=== PATIENT | female | born 1955 | race Caucasian/White ===

== ENCOUNTER 2020-10-25 12:00 | Inpatient (IN) | payer OTHER ==
[2020-10-25 12:58] LABS: Absolute Lymphocytes (CBC) 3.5 K/uL (0.7-4.9); Basophils % 0.6 % (0-1.3); Hematocrit 35.7 % (36.0-45.0); Lymphocytes % 45.8 % (15.3-44.8); MPV 6.3 fL (7.6-11.3); RBC Red Blood Cell Count 4.02 M/uL (3.86-4.86)
[2020-10-25 12:59] LABS: Protime INR 0.97
--- NOTE | 2020-10-25 13:10 | RAD REPORT ---
EXAM DESCRIPTION: CT - Chest Abdomen Pelvis W Cont - 10/25/2020 12:54 pm CLINICAL HISTORY: Chest and abdomen pain. CHEST PAIN COMPARISON: No comparisons TECHNIQUE: Approximately 100 mL nonionic IV contrast was administered to the patient. All CT scans are performed using dose optimization technique as appropriate and may include automated exposure control or mA/KV adjustment according to patient size. FINDINGS: The lungs are clear.No pleural or pericardial effusion.No intrathoracic adenopathy. The liver, spleen, pancreas, adrenal glands and kidneys are within normal limits. No bowel obstruction, free air, free fluid or abscess. Normal appendix. No pathologic lymphadenopath y in the abdomen or pelvis. Right-sided pelvic deformity at the pubic symphysis may be related to remote trauma. Acute left third , fourth, fifth, sixth rib fractures. These are nondisplaced. No underlying pneumothorax. Age indeter minate T12 compression fracture. Remote appearing compression fractures in the lower cervical spine a t C7, T1, T2, T3 T6, and T7. Kyphoplasty changes at T7. Endplate deformity at L3 along the inferior m argin is likely chronic as well. IMPRESSION: Essentially nondisplaced left third through sixth rib fractures anteriorly. No underlyin g pneumothorax. Multiple remote appearing thoracic and lumbar compression fractures. If there is conc tj for acute compression fracture, MRI could better establish acuity if clinically indicated peer
[2020-10-25 13:14] LABS: Urine Blood Negative (Negative); Urine Glucose Negative (Negative); Urine Protein Negative (Negative); Urine Specific Gravity <=1.005 (1.005-1.030)
[2020-10-25 13:15] LABS: ALT/SGPT 15 U/L (12-78); AST/SGOT 17 U/L (15-37); Albumin 3.3 g/dL (3.4-5.0); Alkaline Phosphatase 99 U/L (45-117); BUN Blood Urea Nitrogen 9 mg/dL (7-18); Bicarbonate 34 mmol/L (21-32); Bilirubin Direct 0.2 mg/dL (0-0.2); Bilirubin Total 0.5 mg/dL (0.2-1.0); Glucose Level 105 mg/dL (74-106); Lipase 683 U/L (73-393); NT PRO-BNP 70 pg/mL (<125); Protein, Total 6.4 g/dL (6.4-8.2); Sodium Level 140 mmol/L (136-145); Troponin (Emerg Dept Use Only) < 0.02 ng/mL (0.0-0.045)
[2020-10-25 13:23] LABS: Potassium 2.1 mmol/L (3.5-5.1)
--- NOTE | 2020-10-25 13:30 | RAD REPORT ---
EXAM DESCRIPTION: RAD - Chest Single View - 10/25/2020 1:17 pm CLINICAL HISTORY: COUGH COMPARISON: Chest Abdomen Pelvis W Cont dated 10/25/2020 FINDINGS: Left perihilar opacities are present which corresponds to atelectasis or scarring in the l eft lung. The heart size is within normal limits.No acute osseous abnormality. No significant pleural effusions or pneumothorax. IMPRESSION: Left perihilar opacities corresponds to atelectasis and/or scarring left lung. Nondispla tommy rib fractures are better demonstrated on the same day chest CT. No pneumothorax per
--- NOTE | 2020-10-25 13:34 | ER ---
Nurse's Notes [facility] Name: Octavia Borja Age: 65 yrs Sex: Female : 1955 Arrival Date: 10/25/2020 Time: 12:01 Bed External Waiting Private MD: Diagnosis: Chest pain on breathing;Multiple fractures of ribs, left side;COPD/ Chronic obstructive pulmonary disease, unspecified;Hypokalemia Presentation: 10/25 12:20 Chief complaint: Patient states: Shortness of breath and left rib pain x 2 days. kg Coronavirus screen: Client denies travel out of the [place] in the last 14 days. At this time, unable to obtain information related to travel outside the [place] At this time, the client does not indicate any symptoms associated with coronavirus-19. Ebola Screen: Patient negative for fever greater than or equal to 101.5 degrees Fahrenheit, and additional compatible Ebola Virus Disease symptoms Patient denies exposure to infectious person. Patient denies travel to an Ebola-affected area in the 21 days before illness onset. Initial Sepsis Screen: Does the patient meet any 2 criteria? No. Patient's initial sepsis screen is negative. Does the patient have a suspected source of infection? No. Patient's initial sepsis screen is negative. Risk Assessment: Do you want to hurt yourself or someone else? Patient reports no desire to harm self or others. Onset of symptoms was September 22, 2020. 12:20 Method Of Arrival: Wheelchair kg 12:20 Acuity: PAPI 3 kg Triage Assessment: 12:50 Respiratory: Respiratory: Reports cough that is productive, pain with cough pain with kg movement Unable to take a deep breath due to pain Airway is patent Trachea midline Respiratory effort is even, unlabored, relaxed, Respiratory pattern is regular, Breath sounds are diminished Breath sounds with wheezes bilaterally. Onset: The symptoms/episode began/occurred two days ago, the patient has mild shortness of breath. Historical: - Allergies: 12:37 No Known Allergies; kg - Home Meds: 12:37 [place] 7.5-325 mg Oral tab 1 tab every 4-6 hours [Active]; amlodipine 10 mg tab 1 tab kg once daily [Active]; donepezil 10 mg oral tab 1 tab once daily [Active]; zolpidem 10 mg Oral tab 1 tab once daily [Active]; duloxetine 30 mg oral cpDR 1 cap 2 times per day [Active]; memantine 10 mg oral tab 1 tab 2 times per day [Active]; - PMHx: 12:37 Depressive disorder; Dementia; Hypertensive disorder; broken ribs; kg - PSHx: 12:37 Cholecystectomy; kg - Immunization history:: Client reports receiving the 2nd dose of the Covid vaccine, Client reports receiving the 2nd dose of the Covid vaccine. - Social history:: Smoking status: Patient reports the use of cigarette tobacco products, smokes one-half pack cigarettes per day. - Family history:: not pertinent. Screenin:40 Abuse screen: Denies threats or abuse. Denies injuries from another. Nutritional kg screening: No deficits noted. Tuberculosis screening: No symptoms or risk factors identified. Fall Risk Fall in past 12 months (25 points). No secondary diagnosis (0 pts). IV access (20 points). Ambulatory Aid- None/Bed Rest/Nurse Assist (0 pts). Gait- Weak (10 pts.). Mental Status- Overestimates/Forgets Limitations (15 pts.). Total Durham Fall Scale indicates High Risk Score (45 or more points). Fall prevention measures have been instituted. Side Rails Up X 2 Placed Close to Nursing Station Frequent Obs/Assessments Occuring Family Present and informed to notify staff if the need to leave the bedside As available patient and family educated on Fall Prevention Program and Strategies. Assessment: 12:41 General: Appears in no apparent distress. Behavior is calm, cooperative, appropriate kg for age, quiet. Pain: Complains of pain in Left flank, right upper arm. Cardiovascular: Reports chest pain, shortness of breath, Heart tones S1 S2 Rhythm is regular. Respiratory: Airway is patent Trachea midline Respiratory effort is even, unlabored, relaxed, Respiratory pattern is regular, Breath sounds are clear Breath sounds are diminished bilaterally. 12:50 Neuro: Level of Consciousness is awake, alert, obeys commands, confused, Confused at kg times but easily reoriented. . Oriented to person, place, time, situation, Poultry [employer] Worker are equal bilaterally Moves all extremities. Full function. GI: No deficits noted. : frequent urination. EENT: No deficits noted. Derm: No deficits noted. Musculoskeletal: Reports weakness in Generalized. 17:58 Reassessment: Pt pulled out both of her IV's and removed all of her equipment and kg walked to the nurses station stating she wants to call her and go home. Pt has been reeducated multiple times that her potassium is low. Pt is still stating she wants to go home. . 18:04 Reassessment: Spoke with patient's who states that he is unable to drive and ss does not have any family or friends in the area and would not be able to come be with patient. Pt is very persistent that she wants to come home. Pt remains in wheelchair at nurses station at this time. Attempting to redirect patient back into room multiple times without success. states that since patient has been unable to sleep she has been unreasonable lately. 19:40 Reassessment: Spoke to patients again. He stated that the neighbor is going to kg take him up there to pick her up and bring her home. Patient is currently sitting outside with [employer] and [employer].. 20:00 Reassessment: pt left AMA. bb Vital Signs: 12:10 BP 154 / 81; Pulse 72; Resp 20; Temp 97.7(O); Pulse Ox 94% on R/A; Weight 49.9 kg (R); kg Height 5 ft. 2 in. (157.48 cm) (R); Pain 4/10; 13:00 BP 150 / 70; Pulse 80; Resp 18; Pulse Ox 97% on R/A; kg 14:00 BP 154 / 78; Pulse 75; Resp 20; Pulse Ox 92% on R/A; kg 14:45 BP 142 / 78; Pulse 75; Resp 20; Pulse Ox 92% ; kg 15:00 BP 148 / 79; Pulse 92; Resp 20; Pulse Ox 91% ; kg 15:30 BP 138 / 67; Pulse 79; Resp 20; Pulse Ox 93% on R/A; kg 16:30 BP 146 / 82; Pulse 96; Resp 20; Pulse Ox 93% ; kg 12:10 Body Mass Index 20.12 (49.90 kg, 157.48 cm) kg ED Course: 12:01 Patient arrived in ED. ds1 12:04 Endy Alan MD is Attending Physician. sid 12:08 Violeta Coronel, SHANE is Primary Nurse. kg 12:36 Triage completed. kg 12:41 Inserted saline lock: 20 gauge in right antecubital area, using aseptic technique. kg 12:54 CT Chest, Abdomen, Pelvis - W/Contrast In Process Unspecified. EDMS 13:17 XRAY Chest (1 view) In Process Unspecified. EDMS 13:31 Marlo Toledo MD is Hospitalizing Provider. sid 14:22 No provider procedures requiring assistance completed. Inserted saline lock: 20 gauge kg in right forearm, using aseptic technique. 14:22 Arm band placed on right wrist. kg 08/05 00:48 IV discontinued, intact, bleeding controlled, No redness/swelling at site. Pressure kg dressing applied, Pt removed her own IV. Administered Medications: 00:47 Discontinued: NS 0.9% with KCl 20 mEq/L 1000 ml IV at 125 ml/hr continuous kg 08/04 13:26 Not Given (Duplicate Order): NS 0.9% 1000 ml IV at 125 ml/hr continuous sid 14:03 Drug: Potassium Chloride 20 mEq Route: IV; Rate: per protocol; Site: right antecubital; kg 19:00 Follow up: IV Status: Completed infusion; IV Intake: 100ml kg 14:03 Drug: Potassium Effervescent Tablet 50 mEq Route: PO; kg 15:30 Follow up: Response: No adverse reaction kg 14:04 Drug: morphine 2 mg Route: IVP; Site: right antecubital; kg 16:00 Follow up: Response: No adverse reaction kg 14:04 Drug: Zofran (Ondansetron) 4 mg Route: IVP; Site: right antecubital; kg 16:00 Follow up: Response: No adverse reaction kg 15:45 Drug: NS 0.9% with KCl 20 mEq/L 1000 ml Route: IV; Rate: 125 ml/hr; Site: left kg antecubital; 19:30 Follow up: Response: No adverse reaction; IV Intake: 400ml kg 16:00 Drug: Potassium Chloride 20 mEq Route: IV; Rate: per protocol; Site: right antecubital; kg 18:00 Follow up: IV Status: Completed infusion; IV Intake: 100ml kg Intake: 18:00 IV: 100ml; Total: 100ml. kg 19:00 IV: 100ml; Total: 200ml. kg 19:30 IV: 400ml; Total: 600ml. kg Outcome: 13:33 Decision to Hospitalize by Provider. sid 20:10 AMA AMA form signed kg 20:10 Condition: stable kg 10/26 02:30 Patient left the ED. bb Signatures: Dispatcher [employer] EDEndy Weaver MD MD cha Sanford, Demi ds1 Charu Whiteside RN RN bb Nikki Shrestha RN RN ss Violeta Coronel RN RN kg
--- NOTE | 2020-10-25 13:34 | EDPHYS ---
Physician Documentation [facility] Name: Octavia Borja Age: 65 yrs Sex: Female : 1955 Arrival Date: 10/25/2020 Time: 12:01 Bed External Waiting Private MD: AGUSTÍN Physician Endy Alan HPI: 10/25 12:40 This 65 yrs old Female presents to ER via Wheelchair with complaints of Rib sid Pain, Breathing Difficulty. 12:40 The patient has shortness of breath with light activity. Onset: The symptoms/episode sid began/occurred 3 day(s) ago. Duration: The symptoms are continuous, and are unchanged since they started. The patient's shortness of breath is aggravated by talking, walking. Associated signs and symptoms: Pertinent positives: non-productive cough. Severity of symptoms: At their worst the symptoms were mild moderate in the emergency department the symptoms are unchanged. The patient has experienced similar episodes in the past, several times. Historical: - Allergies: 12:37 No Known Allergies; kg - Home Meds: 12:37 [place] 7.5-325 mg Oral tab 1 tab every 4-6 hours [Active]; amlodipine 10 mg tab 1 tab kg once daily [Active]; donepezil 10 mg oral tab 1 tab once daily [Active]; zolpidem 10 mg Oral tab 1 tab once daily [Active]; duloxetine 30 mg oral cpDR 1 cap 2 times per day [Active]; memantine 10 mg oral tab 1 tab 2 times per day [Active]; - PMHx: 12:37 Depressive disorder; Dementia; Hypertensive disorder; broken ribs; kg - PSHx: 12:37 Cholecystectomy; kg - Immunization history:: Client reports receiving the 2nd dose of the Covid vaccine, Client reports receiving the 2nd dose of the Covid vaccine. - Social history:: Smoking status: Patient reports the use of cigarette tobacco products, smokes one-half pack cigarettes per day. - Family history:: not pertinent. ROS: 12:40 Constitutional: Negative for fever, chills, and weight loss, Eyes: Negative for injury, sid pain, redness, and discharge, ENT: Negative for injury, pain, and discharge, Neck: Negative for injury, pain, and swelling, Cardiovascular: Negative for chest pain, palpitations, and edema, Abdomen/GI: Negative for abdominal pain, nausea, vomiting, diarrhea, and constipation, Back: Negative for injury and pain, : Negative for injury, bleeding, discharge, and swelling, MS/Extremity: Negative for injury and deformity, Skin: Negative for injury, rash, and discoloration, Neuro: Negative for headache, weakness, numbness, tingling, and seizure, Psych: Negative for depression, anxiety, suicide ideation, homicidal ideation, and hallucinations, Allergy/Immunology: Negative for hives, rash, and allergies, Endocrine: Negative for neck swelling, polydipsia, polyuria, polyphagia, and marked weight changes, Hematologic/Lymphatic: Negative for swollen nodes, abnormal bleeding, and unusual bruising. 12:40 Respiratory: Positive for cough, shortness of breath, at rest. Exam: 12:40 Constitutional: This is a well developed, well nourished patient who is awake, alert, sid and in no acute distress. Head/Face: Normocephalic, atraumatic. Eyes: Pupils equal round and reactive to light, extra-ocular motions intact. Lids and lashes normal. Conjunctiva and sclera are non-icteric and not injected. Cornea within normal limits. Periorbital areas with no swelling, redness, or edema. ENT: Nares patent. No nasal discharge, no septal abnormalities noted. Tympanic membranes are normal and external auditory canals are clear. Oropharynx with no redness, swelling, or masses, exudates, or evidence of obstruction, uvula midline. Mucous membranes moist. Neck: Trachea midline, no thyromegaly or masses palpated, and no cervical lymphadenopathy. Supple, full range of motion without nuchal rigidity, or vertebral point tenderness. No Meningismus. Cardiovascular: Regular rate and rhythm with a normal S1 and S2. No gallops, murmurs, or rubs. Normal PMI, no JVD. No pulse deficits. Respiratory: Lungs have equal breath sounds bilaterally, clear to auscultation and percussion. No rales, rhonchi or wheezes noted. No increased work of breathing, no retractions or nasal flaring. Abdomen/GI: Soft, non-tender, with normal bowel sounds. No distension or tympany. No guarding or rebound. No evidence of tenderness throughout. Back: No spinal tenderness. No costovertebral tenderness. Full range of motion. Female : Normal external genitalia. Skin: Warm, dry with normal turgor. Normal color with no rashes, no lesions, and no evidence of cellulitis. MS/ Extremity: Pulses equal, no cyanosis. Neurovascular intact. Full, normal range of motion. Neuro: Awake and alert, GCS 15, oriented to person, place, time, and situation. Cranial nerves II-XII grossly intact. Motor strength 5/5 in all extremities. Sensory grossly intact. Cerebellar exam normal. Normal gait. Psych: Awake, alert, with orientation to person, place and time. Behavior, mood, and affect are within normal limits. 12:40 Chest/axilla: Inspection: normal, Palpation: tenderness, that is moderate, of the left lateral posterior chest and left lateral anterior chest, Axilla: are normal, Breasts: are normal, Lymph nodes: lymphadenopathy is not appreciated. 12:40 ECG was reviewed by the Attending Physician. Vital Signs: 12:10 BP 154 / 81; Pulse 72; Resp 20; Temp 97.7(O); Pulse Ox 94% on R/A; Weight 49.9 kg (R); kg Height 5 ft. 2 in. (157.48 cm) (R); Pain 4/10; 13:00 BP 150 / 70; Pulse 80; Resp 18; Pulse Ox 97% on R/A; kg 14:00 BP 154 / 78; Pulse 75; Resp 20; Pulse Ox 92% on R/A; kg 14:45 BP 142 / 78; Pulse 75; Resp 20; Pulse Ox 92% ; kg 15:00 BP 148 / 79; Pulse 92; Resp 20; Pulse Ox 91% ; kg 15:30 BP 138 / 67; Pulse 79; Resp 20; Pulse Ox 93% on R/A; kg 16:30 BP 146 / 82; Pulse 96; Resp 20; Pulse Ox 93% ; kg 12:10 Body Mass Index 20.12 (49.90 kg, 157.48 cm) kg MDM: 12:04 Patient medically screened. sid 12:43 Differential diagnosis: Anemia Anxiety Reaction Bronchitis Chronic Obstructive sid Pulmonary Disease Myocardial Infarction pulmonary edema, reactive airway disease, Sepsis. Antibiotic administration: Not indicated. The patient's Wells Deep Vein Thrombosis Score was calculated as follows: Total Score: 0-2 Pts- Low Risk. The patient's pulmonary embolism risk score was calculated as follows: Total Score: 0-2 points. This patient was found to be at low risk for a pulmonary embolism by using the Well's assessment criteria. Immunization status: Pneumococcal vaccine: Influenza vaccine: Data reviewed: vital signs, nurses notes, lab test result(s), EKG, radiologic studies, CT scan, plain films. Data interpreted: monitor worker: rate is 72 beats/min, rhythm is regular, Pulse oximetry: on room air Interpretation: normal. Test interpretation: by ED physician or midlevel provider: ECG, plain radiologic studies. Counseling: I had a detailed discussion with the patient and/or guardian regarding: the historical points, exam findings, and any diagnostic results supporting the discharge/admit diagnosis, lab results, radiology results. 10/25 12:40 Order name: Basic Metabolic Panel; Complete Time: 13:25 [facility] 10/25 12:40 Order name: CBC with Diff; Complete Time: 13:25 [facility] 10/25 12:40 Order name: LFT's; Complete Time: 13:25 [facility] 10/25 12:40 Order name: Magnesium; Complete Time: 13:25 [facility] 10/25 12:40 Order name: NT PRO-BNP; Complete Time: 13:25 [facility] 10/25 12:40 Order name: PT-INR; Complete Time: 13:25 [facility] 10/25 12:40 Order name: Troponin (emerg Dept Use Only); Complete Time: 13:25 [facility] 10/25 12:40 Order name: Lipase; Complete Time: 13:25 [facility] 10/25 12:40 Order name: Urine Culture [facility] 10/25 13:14 Order name: Urine Dipstick-Ancillary; Complete Time: 13:25 [facility] 10/25 13:25 Order name: Phosphorus; Complete Time: 15:44 [facility] 10/25 15:50 Order name: Lipase [facility] 10/25 15:52 Order name: Lipid Profile [facility] 10/25 15:52 Order name: Hemoglobin A1c [facility] 10/25 12:40 Order name: XRAY Chest (1 view); Complete Time: 15:09 [facility] 10/25 12:40 Order name: CT Chest, Abdomen, Pelvis - W/Contrast; Complete Time: 13:25 [facility] 10/25 16:01 Order name: Basic Metabolic Panel [facility] 10/25 16:01 Order name: Basic Metabolic Panel [facility] 10/25 16:01 Order name: Troponin I [facility] 10/25 16:01 Order name: Troponin I [facility] 10/25 16:01 Order name: CBC with Automated Diff [facility] 10/25 16:01 Order name: CBC with Automated Diff [facility] 10/25 16:01 Order name: Troponin I [facility] 10/25 16:01 Order name: Troponin I [facility] 10/25 16:01 Order name: SARS-COV-2 RT PCR [facility] 10/25 16:02 Order name: Urinalysis [facility] 10/25 12:40 Order name: EKG; Complete Time: 12:41 [facility] 10/25 12:40 Order name: Cardiac monitoring; Complete Time: 13:16 [facility] 10/25 12:40 Order name: EKG - Nurse/Tech; Complete Time: 13:16 [facility] 10/25 12:40 Order name: IV Saline Lock; Complete Time: 13:17 [facility] 10/25 12:40 Order name: Labs collected and sent; Complete Time: 13:17 [facility] 10/25 12:40 Order name: O2 Per Protocol; Complete Time: 13:17 [facility] 10/25 12:40 Order name: O2 Sat Monitoring; Complete Time: 13:17 [facility] 10/25 12:40 Order name: Urine Dipstick-Ancillary (obtain specimen); Complete Time: 13:16 [facility] 10/25 13:25 Order name: IV Saline Lock - Large Bore; Complete Time: 15:06 [facility] 10/25 16:01 Order name: NPO [facility] 10/25 17:42 Order name: Diet Regular; Complete Time: 17:43 kg EC:40 Rate is 72 beats/min. Rhythm is regular. QRS [place] is Normal. [place] interval is normal. QRS sid interval is normal. QT interval is normal. No Q waves. T waves are Normal. No ST changes noted. Clinical impression: NSR w/ Non-specific ST/T Changes and No evidence of ischemia. Interpreted by me. Reviewed by me. Administered Medications: 10/26 00:47 Discontinued: NS 0.9% with KCl 20 mEq/L 1000 ml IV at 125 ml/hr continuous kg 10/25 13:26 Not Given (Duplicate Order): NS 0.9% 1000 ml IV at 125 ml/hr continuous [facility] 14:03 Drug: Potassium Chloride 20 mEq Route: IV; Rate: per protocol; Site: right antecubital; kg 19:00 Follow up: IV Status: Completed infusion; IV Intake: 100ml kg 14:03 Drug: Potassium Effervescent Tablet 50 mEq Route: PO; kg 15:30 Follow up: Response: No adverse reaction kg 14:04 Drug: morphine 2 mg Route: IVP; Site: right antecubital; kg 16:00 Follow up: Response: No adverse reaction kg 14:04 Drug: Zofran (Ondansetron) 4 mg Route: IVP; Site: right antecubital; kg 16:00 Follow up: Response: No adverse reaction kg 15:45 Drug: NS 0.9% with KCl 20 mEq/L 1000 ml Route: IV; Rate: 125 ml/hr; Site: left kg antecubital; 19:30 Follow up: Response: No adverse reaction; IV Intake: 400ml kg 16:00 Drug: Potassium Chloride 20 mEq Route: IV; Rate: per protocol; Site: right antecubital; kg 18:00 Follow up: IV Status: Completed infusion; IV Intake: 100ml kg Disposition Summary: 10/25/20 13:33 Hospitalization Ordered Hospitalization Status: Inpatient Admission sid Provider: Marlo Toledo cha Location: Telemetry/MedSurg (Inpatient) sid Condition: Fair sid Problem: new sid Symptoms: have improved sid Bed/Room Type: Standard sid Room Assignment: 220(10/25/20 18:36) bd Diagnosis - Chest pain on breathing sid - Multiple fractures of ribs, left side sid - COPD/ Chronic obstructive pulmonary disease, unspecified sid - Hypokalemia sid Forms: - Medication Reconciliation Form sid - SBAR form sid Signatures: Dispatcher [employer] EDMandi Jara Corey, MD MD cha Graham, Kristen, SHANE RN kg Corrections: (The following items were deleted from the chart) 18:36 13:33 sid bd
[2020-10-25] MEDS ORDERED: ONDANSETRON 4 MG/2 ML VIAL ONE (14:11)
[2020-10-25] MEDS ORDERED: KCL 20 MEQ/100 mL IVPB 40 MEQ/200 ML BAG IV ONE (14:11)
[2020-10-25] MEDS ORDERED: MORPHINE 2 MG/ML SYR ONE (14:11)
[2020-10-25] MEDS ORDERED: NA CHLORIDE 0.9% 1,000 ML ONE (14:11)
[2020-10-25] MEDS ORDERED: POTASSIUM 25 MEQ EFFERV TAB ONE (14:11)
[2020-10-25] MEDS ORDERED: NA CHLORIDE 0.9% 1,000 ML with POTASSIUM CL 20 MEQ IV SCH ×2 (15:00)
[2020-10-25] MEDS ORDERED: MORPHINE 4 MG/ML SYR IV PRN (15:52)
[2020-10-25] MEDS ORDERED: ONDANSETRON 4 MG/2 ML VIAL IV PRN (15:54)
[2020-10-25] MEDS ORDERED: ACETAMINOPHEN 500 MG TAB PO PRN (15:54)
[2020-10-25] MEDS ORDERED: NS KCL 20MEQ 1,000 ML IV ONE (16:02)
--- NOTE | 2020-10-25 16:37 | P.HP ---
Certification for Inpatient Patient admitted to: Inpatient With expected LOS: >2 Midnights Patient will require the following post-hospital care: None Practitioner: I am a practitioner with admitting privileges, knowledge of patient current condition, hospital course, and medical plan of care. Services: Services provided to patient in accordance with Admission requirements found in Title 42 Section 412.3 of the Code of Federal Regulations <JacobwilbertKathleen viera - Last Filed: 10/25/20 23:42> Patient History Date of Service: 10/25/20 History of Present Illness: Patient is a 65 years old female with a past medical history significant for depression, dementia, hypertension, broken ribs who presents with complaint of shortness of breath that has been ongoing for the past 3 days. Patient reported that she has had multiple falls in the past and has had a couple of broken ribs. She reported that she fell yesterday and landed on her left side. Patient also reports chest pain located in the left chest wall area. Patient rated pain as 4/10 and described pain as aching in quality. Patient denies any other signs or symptoms. Symptoms are aggravated by exertion and relieved by nothing. Patient decided to present to the hospital due to worsening symptoms. Home medications list reviewed: Yes - Past Medical/Surgical History Has patient received pneumonia vaccine in the past: No -: Dementia -: HTN -: Depression Past Surgical History: Reviewed- Non-Contributory - Family History Family History: Reviewed- Non-Contributory (Reviewed and patient unware of any family history) - Social History Smoking therapy provided: No Alcohol use: No CD- Drugs: No Caffeine use: No Place of Residence: Home <JacobalexandriaJadabeverley Viera - Last Filed: 10/25/20 23:42> Date of Service: 10/26/20 <Marlo Toledo - Last Filed: 10/26/20 21:00> Allergies No Known Allergies Allergy (Unverified 10/25/20 16:25) Review of Systems General: Unremarkable Eyes: Unremarkable ENT: Unremarkable Respiratory: Shortness of Breath, SOB with Excertion Cardiovascular: Chest Pain Gastrointestinal: Unremarkable Genitourinary: Unremarkable Musculoskeletal: Other (Ribs pain) Integumentary: Unremarkable Neurological: Unremarkable Lymphatics: Unremarkable <VeeJadabeverley Viera - Last Filed: 10/25/20 23:42> Physical Examination - Physical Exam General: Alert, In no apparent distress, Oriented x3 HEENT: Atraumatic, PERRLA, Mucous membr. moist/pink, EOMI, Sclerae nonicteric Neck: Supple, 2+ carotid pulse no bruit, No LAD, Without JVD or thyroid abnormality Respiratory: Clear to auscultation bilaterally, Diminished Cardiovascular: Regular rate/rhythm, Normal S1 S2 Capillary refill: <2 Seconds Gastrointestinal: Normal bowel sounds, No tenderness Musculoskeletal: No tenderness Integumentary: No rashes Neurological: Normal gait, Normal speech, Normal tone, Normal affect Lymphatics: No axilla or inguinal lymphadenopathy External genitalia: Deferred Rectal: Deferred - Studies Laboratory Data (last 24 hrs) 10/25/20 12:45: Phosphorus 3.9 10/25/20 12:45: PT 11.2, INR 0.97 10/25/20 12:45: WBC 7.60, Hgb 12.8, Hct 35.7 L, Plt Count 288 10/25/20 12:45: Sodium 140, Potassium 2.1 L*, BUN 9, Creatinine 0.67, Glucose 105, Magnesium 2.0, Total Bilirubin 0.5, AST 17, ALT 15, Alkaline Phosphatase 99, Lipase 683 H <Kathleen Baxter - Last Filed: 10/25/20 23:42> Assessment and Plan - Plan --Chest pain. Likely atypical. Secondary to broken ribs. Will trend serial troponins. Telemetry to monitor for any significant arrhythmia. Continue supportive care. --Acute pain. We will manage pain with current pain medication regimen. --Hypokalemia. Replete as needed. --Dementia. Continue supportive care. --Depression. Continue home medications. --Hypertension. Stable. Continue home medication. --Compression fractures. Noted in the thoracic and lumbar spine on CT imaging. Patient denies any s/s of radiculopathy. MRI lumbar and thoracic spine pending for further assessment. --Elevated lipase. Patient denies any abdominal pain. Will reassess levels in a.m. --Shortness of breath. Imaging does not demonstrate any pneumothorax, pleural, pericardial or intrathoracic adenopathy. SOB likely due to broken ribs. Continue neb treatment with Atrovent\albuterol. --DVT prophylaxis with Lovenox subQ. Pain Assessment and Follow-Up - 18+ years old: Code: G8730 - pain assessment positive with standardized tool AND a follow up plan is documented. I have had discussion about advanced directives with the patient during this hospital admission. Addressed code status and /or goals of care. Spent more than 15 minutes. Case discussed withpatient and nurse. Discharge Plan: Home Plan to discharge in: 48 Hours - Advance Directives Does patient have a Living Will: No Does patient have a Durable POA for Healthcare: No - Code Status/Comfort Care Code Status Assessed: Yes Code Status: Full Code Physician Review: Patient Assessed, Agree with Above Assessment and Plan Critical Care: No <Kathleen Baxter - Last Filed: 10/25/20 23:42> - Plan Case reviewed with Kathleen Baxter Patient left against medical advice on 10/25 prior to me examining her. Time Spent Managing Pts Care (In Minutes): 65 <Marlo Toledo - Last Filed: 10/26/20 21:00>
[2020-10-25 18:19] VITALS: O2SAT 95
[2020-10-25] MEDS ORDERED: ALBUTEROL 2.5 MG/3 ML NEB SOL NEB SCH (20:00)
[2020-10-25] MEDS ORDERED: IPRATROPIUM BROM 0.5MG/2.5ML NEB SCH (20:00)
[2020-10-26 03:21] VITALS: TEMP 97.7
[2020-10-26 03:32] VITALS: BP 146/82
[2020-10-26] MEDS ORDERED: ASPIRIN 81 MG CHEWABLE TABLET PO SCH (09:00)
[2020-10-26] MEDS ORDERED: ENOXAPARIN 40 MG/0.4 ML SQ SCH (09:00)
== END 2020-10-25 20:00 | disposition left against medical advice (07) | DRG 313 ==
LOC: ER 12:00 → ERHOLD 15:39 → 2ND 19:48
PROVIDERS: ADMIT Hospitalist; ATTEND Hospitalist
DX: R07.89 Other chest pain (principal); S22.42XA Multiple fractures of ribs, left side, initial encounter for closed fracture; W19.XXXA Unspecified fall, initial encounter; E87.6 Hypokalemia; F03.90 Unspecified dementia, unspecified severity, without behavioral disturbance, psychotic disturbance, mood disturbance, and anxiety; F32.9 Major depressive disorder, single episode, unspecified; I10 Essential (primary) hypertension; R06.02 Shortness of breath; Z53.29 Procedure and treatment not carried out because of patient's decision for other reasons; Z20.822 Contact with and (suspected) exposure to COVID-19
CPT/HCPCS: 36415; 71045; 71260; 74177; 80048; 80061; 80076; 81003; 82565; 83036; 83690; 83735; 83880; 84100; 84484; 85025; 85610; 87086; 87088; 93005; 96365; 96366; 96375; 99284; J2270; J2405; J3480; J7030; Q9967; U0003